=== PATIENT | male | born 1985 | race Caucasian/White ===

== ENCOUNTER 2024-03-04 11:29 | Outpatient (CLI) | payer OTHER | END 2024-03-04 11:30 | disposition home or self-care (01) | LOC: SCSMRI 11:29 | PROVIDERS: ATTEND Family Medicine | DX: S46.212D Strain of muscle, fascia and tendon of other parts of biceps, left arm, subsequent encounter (principal); S46.112A Strain of muscle, fascia and tendon of long head of biceps, left arm, initial encounter ==

== ENCOUNTER 2024-03-22 08:23 | Outpatient (CLI) | payer OTHER, SELFPAY ==
[2024-03-22 09:52] LABS: #Basophils 0.08 10x3/uL (0.0-0.2); #Eosinphils 0.24 10x3/uL (0.0-0.5); #Monocytes 0.65 10x3/uL (0.0-1.1); #Neutrophils 5.33 10x3/uL (1.5-8.4); %Basophils 0.9 % (0.0-2.0); %Eosinophils 2.8 % (0.0-6.0); %Lymphocytes 24.9 % (18.0-47.0); %Monocytes 7.7 % (0.0-10.0); %Neutrophils 63.2 % (40.0-75.0); Hematocrit 45.8 % (38.8-50.0); Hemoglobin 16.6 g/dL (13.5-17.5); Mean Corpuscular HGB CONC 36.2 g/dL (32.0-36.0); Mean Corpuscular Hemoglobin 29.9 pg (27.0-33.0); Mean Corpuscular Volume 82.5 fL (81.2-95.1); Mean Platelet Volume 9.5 fL (7.4-10.4); Platelet Count 252 10x3/uL (150-450); RBC Distribution Width 12.9 % (11.5-14.5); Red Blood Cell (RBC) Count 5.55 10x6/uL (4.32-5.72); White Blood Cell (WBC) Count 8.4 10x3/uL (3.5-10.5)
== END 2024-03-22 08:24 | disposition home or self-care (01) ==
LOC: LABBT 08:23
PROVIDERS: ATTEND Orthopaedic Surgery
DX: Z01.818 Encounter for other preprocedural examination (principal); S46.212A Strain of muscle, fascia and tendon of other parts of biceps, left arm, initial encounter
CPT/HCPCS: 85025; 93005; 93010

== ENCOUNTER 2024-03-24 11:39 | Day surgery (SDC) | payer OTHER ==
[2024-03-22 09:10] VITALS: BMI 31.4
[2024-03-24] MEDS ORDERED: Ropivacaine 0.5% HCl/PF (150 MG/30 ML VIAL) ONE (14:32)
[2024-03-24] MEDS ORDERED: Midazolam HCl 2 mg/2 ml Vial ONE (14:32)
[2024-03-24] MEDS ORDERED: Bupivacaine HCl 0.5%/Epinephrine 1:200,000/PF 30 ml Vial ONE (14:45)
[2024-03-24] MEDS ORDERED: CEFAZOLIN 2 GM VIAL ONE (15:21)
[2024-03-24] MEDS ORDERED: Sodium Chloride 0.9% 100 ML ONE (15:22)
[2024-03-24] MEDS ORDERED: Lidocaine 1% PF 5 ML VIAL ONE (15:25)
[2024-03-24] MEDS ORDERED: PROPOFOL 20 ML ONE ×2 (15:25→15:44)
[2024-03-24] MEDS ORDERED: fentaNYL PF 100 MCG/2 ML SYRINGE ONE (15:25)
[2024-03-24] MEDS ORDERED: Dexamethasone 4 mg/ml Vial ONE (15:51)
[2024-03-24] MEDS ORDERED: Metoclopramide HCl 10 MG (2 mL) VIAL ONE (15:51)
[2024-03-24] MEDS ORDERED: Ondansetron PF 4 MG/2 ML Vial ONE (15:51)
[2024-03-24] MEDS ORDERED: PHENYLEPHRINE-NS 100 MCG/ML 10 ML SYRINGE ONE (16:35)
[2024-03-24] MEDS ORDERED: Sevoflurane 250 ML INH ANEST BOTTLE ONE (16:42)
[2024-03-24] MEDS ORDERED: Ketorolac Tromethamine 30 MG (1 mL) VIAL ONE (17:43)
[2024-03-24] MEDS ORDERED: fentaNYL 50 mcg/mL 1 mL Vial ONE (17:51)
[2024-03-24] MEDS ORDERED: Ondansetron PF 4 MG/2 ML Vial IVP PRN (18:30)
[2024-03-24] MEDS ORDERED: Promethazine HCl 25 MG/ML VIAL IM PRN (18:30)
[2024-03-24] MEDS ORDERED: Zolpidem Tartrate 5 MG TAB PO PRN (18:30)
[2024-03-24] MEDS ORDERED: Ropivacaine 0.2% 550 ML 550 ML NERVE BLCK SCH (18:30)
[2024-03-24] MEDS ORDERED: Ketorolac Tromethamine 30 MG (1 mL) VIAL IVP SCH (23:59)
== END 2024-03-24 19:45 | disposition home or self-care (01) ==
LOC: SDC 11:39
PROVIDERS: ATTEND Orthopaedic Surgery
PROC: 0LU Tendons, Supplement (ICD-10-PCS; principal; 2024-03-24)
DX: S46.212A Strain of muscle, fascia and tendon of other parts of biceps, left arm, initial encounter (principal); E78.5 Hyperlipidemia, unspecified; I10 Essential (primary) hypertension; Z79.899 Other long term (current) drug therapy; X58.XXXA Exposure to other specified factors, initial encounter
CPT/HCPCS: A4306; A6223; C1713; C1889; J1100; J1885; J2250; J2405; J2704; J2765; J2795; J3010; J3490